=== PATIENT | female | born 1960 | race Caucasian/White ===

== ENCOUNTER 2016-05-23 15:02 | Emergency (ER) | payer OTHER ==
[~2016-05-23] VITALS: Wt 100.0 kg
--- NOTE | 2016-05-23 15:33 | ERD ---
ER Documentation Chief Complaint Date/Time DATE: 05/23/16 TIME: 15:31 Chief Complaint left ear pain and mild hearing loss for 6-9 months HPI This is a 56 yo female with history of DMII, hypertension, and high cholesterol , presenting to the department for left ear pain, decreased hearing, and itching. This issue has been ongoing for months, and has had it irrigated by her PCP twice, but the issue persisted. She was referred to see ENT specialist, but was not cleared by insurance. She denies fevers, chills, N/V/D, dizziness, syncope, balance issues, or other sxs currently. ROS All systems reviewed and are negative except as per history of present illness. Medications Home Meds Active Scripts Diphenhydramine Hcl* (Benadryl*) 25 Mg Cap, 25 MG PO Q6 Y for ITCHING/RASH, #20 TAB Prov:SARAH WALL PA-C 05/23/16 Amoxicillin/Potassium Clav (Amox-Clav 875-125 mg Tablet) 875-125 mg Tab, 1 TAB PO BID, #20 TAB Prov:SARAH WALL PA-C 05/23/16 PMhx/Soc Medical and Surgical Hx: pt denies Surgical Hx Hx Miscellaneous Medical Probl: Yes (DM) Hx Alcohol Use: No Hx Substance Use: No Hx Tobacco Use: No Smoking Status: Never smoker FmHx Family History: coronary disease, diabetes Physical Exam Vitals Vital Signs Date Time Temp Pulse Resp B/P Pulse Ox O2 Delivery O2 Flow Rate FiO2 05/23/16 15:06 98.2 96 20 140/72 100 Physical Exam INITIAL VITAL SIGNS: Reviewed by me. GENERAL: Alert and interactive. No acute distress. HEAD: Head is normocephalic and atraumatic. EYES: EOMI. No scleral icterus. No conjunctival injection. ENT: Moist mucosa. There is no impacted cerumen bilaterally. There is a greenish purulent material behind the TM of the left ear. There is no swelling or erythema of the external auditory canal. There is no purulent material present in the external auditory canal. There is mild erythema of the TM. There is no bulging of the TM. The right TM is normal in appearance. NECK: Supple. Full range of motion. RESPIRATORY: Normal respiratory effort. Clear breath sounds bilaterally. No wheezing, rales, or rhonchi. CV: Regular rate and rhythm. Normal S1 S2. No S3 or S4. No murmurs. ABDOMEN: Soft, non-distended, non-tender. No guarding. No rebound. No masses. EXTREMITIES: No deformity. SKIN: Warm and dry. NEUROLOGIC: Alert and oriented x 4. Speech is normal. Moves all extremities equally. No motor or sensory deficits noted. Procedures/MDM EMERGENCY DEPARTMENT COURSE / MEDICAL DECISION MAKING: This is a 56-year-old female who comes to the emergency room secondary to complaints of left-sided ear pain, itching, and slight decrease in hearing. On physical examination there is some purulent material present behind the left TM but no erythema, bulging, or any abnormalities to the external auditory canal. Differential diagnosis includes otitis externa, mastoiditis, tinnitus, and others. Primary diagnosis is otitis media. Discharge: I have discussed the lab results and diagnostic findings with the patient and answered any questions or concerns. The patient was discharged with a prescription for Augmentin and Benadryl. The patient was advised to followup with their PMD in 1-2 days and to return to the ED if there are any new or worsening symptoms. The patient was also given referral for ENT in case symptoms do not improve. The patient understood and agreed with treatment and plan. Departure Diagnosis: Primary Impression: Otitis media Additional Impression: Left ear pain Condition: Stable Patient Instructions: Common Middle Ear Problems Additional Instructions: Follow-up with your primary care physician within 1 week. Return to the emergency department immediately should you have any new or worsening symptoms, uncontrolled fevers, or other unexplained symptoms. Take all medications as directed. SARAH WALL PA-C May 23, 2016 15:33
[2016-05-23] MEDS ORDERED: AMOX1TAB10 PO (15:42)
[2016-05-23] MEDS ORDERED: BEN25 PO (15:42)
== END 2016-05-23 15:59 | disposition home or self-care (01) ==
LOC: FTE 15:02
DX: H66.92 Otitis media, unspecified, left ear (principal); E11.9 Type 2 diabetes mellitus without complications; I10 Essential (primary) hypertension
CPT/HCPCS: 99283

== ENCOUNTER 2017-08-06 16:42 | Emergency (ER) | END 2017-08-06 19:29 | disposition home or self-care (01) ==